=== PATIENT | female | born 1935 | race Caucasian/White ===

== ENCOUNTER → 2017-06-24 | Outpatient (CLI) | payer OTHER ==
[~2017-06-24] MED LIST: ASPI-496 PO; ASPI325T17 PO; HYDR-3245 PO; LEVO50TA5 PO; MULT-212 PO; OMEP20CA9 PO; PARO20TA4 PO; SIMV80TA3 PO
== END | disposition home or self-care (01) ==
LOC: CFH 13:26
PROVIDERS: ATTEND Internal Medicine
DX: J84.89 Other specified interstitial pulmonary diseases (principal)
CPT/HCPCS: 71250